=== PATIENT | female | born 1980 | race Caucasian/White ===

== ENCOUNTER → 2018-06-13 | Outpatient (REF) | payer BC ==
[2018-06-13 14:56] LABS: INFLUENZA A AMPLIFICATION NEGATIVE (NEGATIVE); INFLUENZA B AMPLIFICATION NEGATIVE (NEGATIVE)
== END ==
LOC: M LAB REF 13:35
PROVIDERS: ATTEND Physician Assistant
DX: J11.1 Influenza due to unidentified influenza virus with other respiratory manifestations (principal)

== ENCOUNTER 2018-12-09 09:36 | Inpatient (IN) | payer BC ==
[2018-12-09] VITALS (12 sets, daily range): BP systolic 141–203; BP diastolic 75–102
[~2018-12-09] VITALS: Ht 157.5 cm; Wt 113.5 kg
[2018-12-09] MEDS ORDERED: FERR325T18 PO (09:48)
[2018-12-09] MEDS ORDERED: LABE20TAB PO (09:48)
[2018-12-09] MEDS ORDERED: OXYC-517 PO (09:48)
[2018-12-09] MEDS ORDERED: IBUP-1022 PO (09:48)
[2018-12-09] MEDS: hydrALAZINE INJ 20 MG/ML VIAL IV PRN ×3 (10:08→10:53)
[2018-12-09 10:09] LABS: BASO % 0.6 % (0.0-1.0); EOS # 0.1 10^3/uL (0.0-0.5); HEMATOCRIT 32.1 % (36.0-47.0); HEMOGLOBIN 10.9 g/dl (12.0-15.5); LYMPH # 1.8 10^3/uL (1.5-5.0); LYMPH % 25.1 % (24.0-44.0); MEAN CORPUSCULAR HEMOGLOBIN 31.1 pg (27.0-33.0); MEAN CORPUSCULAR VOLUME 91.5 fl (80.0-96.0); MONO # 0.4 10^3/uL (0.0-0.8); MONO % 5.8 % (0.0-5.0); NEUTROPHILS # 4.7 10^3/uL (1.5-8.5); NEUTROPHILS % 65.9 % (36.0-66.0); PLATELET COUNT, AUTOMATED 326 10^3/uL (150-450); RED BLOOD COUNT 3.51 10^6/uL (4.00-5.40); WHITE BLOOD COUNT 7.1 10^3/uL (4.0-10.0)
--- NOTE | 2018-12-09 10:22 | REP ---
Clinical: Chest pain . Comparison: None . Findings: The mediastinum and cardiac silhouette are stable and within normal limits for portable technique. The lung lee are clear without acute consolidation, effusion, or pneumothorax. Skeletal structures are intact. Impression: No acute cardiopulmonary process appreciated. Electronically Signed by Arnoldo Vu MD 12/09/2018 10:13 A
[2018-12-09 10:25] LABS: ALBUMIN 2.6 GM/DL (3.2-5.2); ALT/SGPT 22 U/L (12-78); BILIRUBIN,DIRECT < 0.1 MG/DL (0.0-0.2); BILIRUBIN,TOTAL 0.2 MG/DL (0.2-1.0); MAGNESIUM LEVEL 1.8 MG/DL (1.8-2.4); TOTAL PROTEIN 5.9 GM/DL (6.4-8.2); URIC ACID 4.6 MG/DL (2.6-6.0)
--- NOTE | 2018-12-09 10:26 | REP ---
Clinical: Acute headache . Comparison: 12/10/2010 . Findings: The ventricles, sulci, and cisterns are normal in position and appearance. Swift-white differentiation is maintained. No acute intracranial hemorrhage, mass/mass effect, pathology or trauma/injury. No evidence for acute infarction. No extra-axial fluid collection. Calvarium is intact. Paranasal sinuses and mastoid air cells are clear. Impression: Normal noncontrast head CT. No evidence for acute intracranial pathology or trauma/injury. Electronically Signed by Arnoldo Vu MD 12/09/2018 10:18 A
[2018-12-09] MEDS ORDERED: FUROSEMIDE 20 MG/2 ML VIAL (J1940) IV ONE ×2 (10:30→14:30)
[2018-12-09] MEDS ORDERED: ACETAMINOPHEN 500 MG TAB PO ONE (10:30)
[2018-12-09 10:36] LABS: INR 1.03; PROTHROMBIN TIME 13.2 SECONDS (11.8-14.0)
[2018-12-09 10:37] LABS: PARTIAL THROMBOPLASTIN TIME 31.5 SECONDS (25.0-38.4)
[2018-12-09 10:43] LABS: CK-MB VALUE MASS 1.1 NG/ML (<3.6); CPK CREATINE PHOSPHOKINASE 83 U/L (26-192); MB/CK RELATIVE INDEX 1.33 (< OR =4); NT-PRO BNP 484 PG/ML (<125); TROPONIN I < 0.02 NG/ML (< 0.10)
[2018-12-09] MEDS ORDERED: MONT10TA2 PO (11:25)
[2018-12-09] MEDS ORDERED: ECOT81TA5 PO (11:25)
[2018-12-09] MEDS ORDERED: OMEP40CA2 PO (11:25)
[2018-12-09] MEDS ORDERED: B-2100TA PO (11:25)
[2018-12-09] MEDS ORDERED: RA B2500 PO (11:25)
[2018-12-09] MEDS ORDERED: CETI10TA4 PO (11:25)
[2018-12-09] MEDS ORDERED: VITAD1000T PO (11:25)
[2018-12-09] MEDS ORDERED: MULTTAB20 PO (11:25)
[2018-12-09 13:40] LABS: BLOOD UREA NITROGEN 14 MG/DL (7-18); CALCIUM LEVEL 8.6 MG/DL (8.5-10.1); CARBON DIOXIDE LEVEL 20 MEQ/L (21-32); CHLORIDE LEVEL 115 MEQ/L (98-107); CREATININE FOR GFR 0.89 MG/DL (0.55-1.30); GLOMERULAR FILTRATION RATE > 60.0 (>60); GLUCOSE, FASTING 98 MG/DL (70-100); POTASSIUM SERUM 4.5 MEQ/L (3.5-5.1); SODIUM LEVEL 145 MEQ/L (136-145)
--- NOTE | 2018-12-09 13:45 | HPE ---
DATE OF ADMISSION: 12/09/2018 PRINCIPAL DIAGNOSIS: Hypertensive emergency. PRIMARY CARE PROVIDER: Dr. Carmen Wharton LOW [employer]AGE ELECTRICIAN: center at [facility]. HISTORY: Gisell Maier is a 38-year-old, 1 week via section with a past history of hypertension, blood pressure was well controlled during her . She underwent elective section last week. She presented to the emergency room with headache, chest pressure and shortness of breath. Her blood pressure was 230/101 upon arrival. She has received hydralazine and some intravenous Lasix in addition to the labetalol that she takes as an outpatient and her blood pressure is now down to . She is being admitted to the intensive care unit (ICU) for further evaluation. PAST MEDICAL HISTORY: 1. 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 2. History of hypertension. 3. Chronic tension headaches. 4. Body Mass Index (BMI) greater than 45. 5. Carpal tunnel syndrome during . 6. History of cholecystitis. 7. Pleurodynia in the past. Her blood pressure is being treated as an outpatient with labetalol 200 mg twice a day. She also was on Singulair 10 mg daily and Ventolin inhaler for asthma and Prilosec for gastroesophageal reflux disease (GERD). She takes Actigall 300 mg twice a day for history of cholelithiasis. CURRENT MEDICATIONS: - aspirin 81 mg daily - cetirizine 10 mg daily - ferrous sulfate 325 mg daily - ibuprofen 600 mg every 6 hours as needed for pain - labetalol 200 mg twice a day - Singulair 10 mg at night - omeprazole 40 mg daily - vitamin D 1000 units daily - Ventolin inhaler - over the counter supplements like Biotin and Riboflavin. REVIEW OF SYSTEMS: She has had a pounding headache that has gotten better as her pressure has come down. CT of the brain showed no bleed. She has no chest pain. She has been short of breath. She has lower extremity edema that has been worsened in the last day. No visual disturbance. ALLERGIES: ADHESIVE TAPE, AMITRIPTYLINE caused her to feel "zoned out." PREDNISONE caused her to be disoriented. LATEX caused rash. SULFA antibiotics caused rash. I reviewed records available from her delivery. Her blood pressure on discharge was 142/83 with a pulse of 71. FAMILY HISTORY: Noncontributory. SOCIAL HISTORY: Nonsmoker. 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 She is not . PHYSICAL EXAMINATION: Blood pressure is currently 152/72, pulse 60, respirations 18, 98% oxygen saturation on 2 liters. GENERAL APPEARANCE: Flushed appearance. HEENT: Pupils are equal and reactive to light. Tympanic membranes normal. Neck with no masses. LUNGS: Clear. HEART: Regular with no murmur. ABDOMEN: Soft, nontender. No masses. EXTREMITIES: 1 to 2+ peripheral edema. No clonus. NEUROLOGIC: Nonfocal. LABORATORIES: White count 7.1, hemoglobin 10.9, platelets 326. Sodium 142, potassium 4.2, BUN 13, creatinine 0.9. Liver function tests are normal. Troponin is flat. Urinalysis shows no protein. CT of the head shows no bleed. Chest x-ray is unremarkable. IMPRESSION: 1. Hypertensive emergency. The patient will be admitted to the intensive care unit (ICU). Continue labetalol at the current dose. Give her hydralazine intravenously as needed. She has already received a dose of furosemide in the emergency room. Consult Dr. To, who is carbon rod inserter for L[employer] VOLTAGE ELECTRICIAN, as well as Dr. Staton for hypertension assistance. The patient will be on the hospitalist service. 2. 1 week. The patient is breast feeding and nursing staff was asked to make accommodations for this. 3. History of asthma. Continue her Singulair and use albuterol on an as needed basis.
[2018-12-09] MEDS ORDERED: hydrALAZINE INJ 20 MG/ML VIAL IV SCH (14:00)
[2018-12-09] MEDS ORDERED: POTASSIUM CHLORIDE 10 MEQ SR TABLET PO ONE (14:30)
[2018-12-09] MEDS: hydroCHLOROthiazide 12.5 MG CAPSULE PO SCH (16:13)
[2018-12-09] MEDS: NIFEdipine 10 MG CAP PO SCH ×2 (16:14→23:08)
[2018-12-09] MEDS: IBUPROFEN 800 MG TAB PO PRN ×2 (16:15→22:21)
--- NOTE | 2018-12-09 17:32 | CR ---
DATE OF CONSULTATION: 12/09/2018 REFERRING PHYSICIAN: Segundo Monsivais MD REASON FOR CONSULTATION: Hypertensive emergency, systemic hypertension. HISTORY OF PRESENT ILLNESS: Mrs. 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 She had a delivery of her first and only child 12/02/2018 by section. No history of preeclampsia. Currently, she is . She is 100% compliant with her blood pressure medications and does not have any history of adverse drug reaction to any prior antihypertensive agents. Since during the night last night, she has been having severe headache which is ongoing as well as she had some tightness and shortness of breath during the night. She has noticed bilateral progressive edema in both legs following section 12/02/2018. Prior to admission, she was on labetalol. She came to the emergency room this morning and was found to be severely hypertensive and had peripheral edema. Dr. Latisha Swift spoke to me for curbside advice and I suggested a dose of IV furosemide as the initial step to help bring down the blood pressure. Patient reports minimal use of added salt. She estimates about 40% of her food consumption is from processed food. She does check food labels and tries to keep the sodium content of individual foods to be choices that are 20% or less of the recommended dietary allowance for sodium. She infrequently consumes take out or restaurant food. She does not consume alcohol currently or during her . Prior to becoming , she was consuming a glass of wine on average every second day. She does not consume black licorice. She is on her feet walking about at least 30 minutes a day. She does not do any aerobic exercise or resistance exercise. She has an automatic digital arm blood pressure monitor. Her reports she has some mild snoring. No excessive daytime somnolence. She reports some facial flushing and she states this is how I know my blood pressure is high. No orthostatic lightheadedness. PAST MEDICAL AND SURGICAL HISTORY: section 12/02/2018. Behcet's disease. Systemic hypertension. Asthma. Degenerative disc disease. Morbid obesity. Chronic tension headaches. Carpal tunnel syndrome. History of cholecystitis. Previous pleurodynia. ADVERSE DRUG REACTIONS: SULFA ANTIBIOTICS, PREDNISONE, adhesive tape. MEDICATIONS: Prior to admission: - aspirin 81 mg daily - Biotin 2.5 grams daily - cetirizine 10 mg daily - ferrous sulfate 325 mg every evening - ibuprofen 600 mg by mouth every 6 hours as needed - labetalol 200 mg twice a day - montelukast 10 mg by mouth nightly - omeprazole 40 mg daily - oxycodone 5 mg every 6 hours as needed - multivitamin one daily - riboflavin 100 mg twice a day - vitamin D 1000 units daily Patient's current medications in hospital are as follows: - hydralazine 10 mg IV every 4 hours - furosemide 20 mg IV times one given in the emergency room (ER) - hydralazine 5 mg IV times one given in the ER - aspirin 81 mg daily - omeprazole 40 mg daily - vitamin D 1000 units daily - labetalol 200 mg twice a day - Singulair 10 mg nightly - Lovenox 40 mg subcutaneous nightly - ferrous sulfate 325 mg nightly FAMILY HISTORY: Mother, father, and one sister have systemic hypertension. Her mother had breast cancer. SOCIAL HISTORY: , resident of [place], [place]. Recent child. 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 No current alcohol. Nonsmoker. No illicit drugs. REVIEW OF SYSTEMS: 12 point review of systems negative other than those listed in the history of present illness (HPI) and past history as above. PHYSICAL EXAMINATION: Pleasant, morbidly obese, woman who appears her chronological age who is not in any respiratory or psychologic distress. Blood pressure 193/93, pulse 53 (regular), oxygen saturation 99% on oxygen 2 liters by nasal cannula, temperature 98.6, height 62 inches, weight 113.5 kg, body mass index (BMI) 45.8. No conjunctival pallor, sclerae icterus, or xanthomas. Oral mucosa was moist and without pallor or cyanosis. Jugular venous pulsations were at 5 cm. Trachea midline. No palpable thyroid. No clubbing of the nail beds, cyanosis, or splinter hemorrhages. No skin lesions, skin pallor, or icterus. Oriented to person, place, and time. Mood and affect normal. Curvature of spine normal. Gait not tested as patient is presently on bed rest in the intensive care unit (ICU). Gross motor strength and tone were normal. Respiratory expansion and effort was normal. No crackles or wheezes. No parasternal lifts, heaves, thrills, or palpable heart sounds. No palpable apex beat. First and second heart sounds were normal. No S3 or S4 or murmurs. Carotids are normal in volume and contour and without bruits. No palpable abdominal aorta. Femoral pulse difficult due to morbid obesity. Pedal pulse normal. 1 cm of pitting edema is present at mid and distal tibial level bilaterally. No varicose veins. Abdomen is obese, soft, nontender with normal bowel sounds. No hepatosplenomegaly or other organomegaly. Liver span difficult to assess due to abdominal obesity. Stool for occult blood not presently indicated. LABORATORY WORK: Laboratory work 12/09/2018 shows WBC 7.1, hemoglobin 10.9, hematocrit 32.1, platelets 326. PT/INR 1.03. Sodium 145, potassium 4.9, chloride 115, CO2 20, BUN 14, creatinine 0.89, estimated GFR greater than 60, glucose 98, uric acid 4.3, calcium 8.6, magnesium 1.8, bilirubin 0.2, direct bilirubin less than 0.1, AST 12, ALT 22, alkaline phosphatase 78, troponin I less than 0.02, NT-proBNP 484, total protein 5.6, albumin 2.6. CT head without contrast 12/09/2018 reported to be normal. I have independently visualized the patient's upright portable chest x-ray acquired 12/09/2018 at 10:03 a.m. It appears to be a normal portable chest x-ray. ASSESSMENT AND PLAN: 1. Hypertensive emergency. Patient has preexisting systemic hypertension and the patient's severe headache combined with severely uncontrolled systemic hypertension define this as a hypertensive emergency. She initially responded well to a dose of IV furosemide and a dose of IV hydralazine. At this point, I will give her some additional IV furosemide. I will also start her on hydrochlorothiazide 12.5 mg twice a day. Continue the current dose of labetalol 200 mg twice a day. I will take her off of the IV hydralazine every 4 hours order. I will order a dose of nifedipine. I will place her on a 2.5 gram DASH diet. Will follow with you. 2. Systemic hypertension. As per hypertensive emergency above. I plan to order an echocardiogram Doppler, renal ultrasound with renal artery Doppler because she had hypertension at a young age, as well as an ECG. Because she reports some flushing I will order plasma metanephrines. I will order plasma aldosterone and plasma renin activity. 3. Morbid obesity. I will place the patient on a DASH diet. 4. Flushing. Patient reports facial flushing and that is how she knows her blood pressure is high. I will order plasma metanephrines. 5. Dyspnea. Patient reports some dyspnea and chest tightness in the night and her NT-proBNP is just very mildly elevated. I will order an echocardiogram Doppler. She reports her breathing is better. She has responded nicely to IV furosemide.
[2018-12-09] MEDS ORDERED: FERROUS SULFATE 325MG TAB PO SCH (18:00)
[2018-12-09] MEDS: LABETALOL 200 MG TAB PO SCH (20:06)
[2018-12-09] MEDS: ACETAMINOPHEN 500 MG TAB PO PRN (20:07)
[2018-12-09] MEDS: MAGNESIUM CHLORIDE 64 MG TABCR (SLO MAG) PO SCH (20:07)
[2018-12-09] MEDS ORDERED: ENOXAPARIN 40 MG/0.4 ML SYRINGE (J1650) SC SCH (21:00)
[2018-12-09] MEDS ORDERED: MONTELUKAST 10 MG TAB PO SCH (21:00)
--- NOTE | 2018-12-09 21:51 | ECGEPIP ---
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
[2018-12-09 23:02] LABS: BLOOD UREA NITROGEN 15 MG/DL (7-18); CALCIUM LEVEL 8.6 MG/DL (8.5-10.1); CARBON DIOXIDE LEVEL 24 MEQ/L (21-32); CHLORIDE LEVEL 110 MEQ/L (98-107); CREATININE FOR GFR 0.89 MG/DL (0.55-1.30); GLOMERULAR FILTRATION RATE > 60.0 (>60); GLUCOSE, FASTING 110 MG/DL (70-100); SODIUM LEVEL 140 MEQ/L (136-145)
[2018-12-10] VITALS (10 sets, daily range): BP systolic 143–178; BP diastolic 83–96
--- NOTE | 2018-12-10 00:35 | ECGEPIP ---
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
[2018-12-10] MEDS: ACETAMINOPHEN 500 MG TAB PO PRN (04:34)
[2018-12-10 05:09] LABS: HEMOGLOBIN 11.8 g/dl (12.0-15.5); MEAN CORPUSCULAR HEMOGLOBIN 30.1 pg (27.0-33.0); MEAN CORPUSCULAR HGB CONC 33.7 g/dl (32.0-36.5); MEAN CORPUSCULAR VOLUME 89.3 fl (80.0-96.0); PLATELET COUNT, AUTOMATED 401 10^3/uL (150-450); RED BLOOD COUNT 3.92 10^6/uL (4.00-5.40); WHITE BLOOD COUNT 8.1 10^3/uL (4.0-10.0)
[2018-12-10 05:33] LABS: BLOOD UREA NITROGEN 13 MG/DL (7-18); CALCIUM LEVEL 8.3 MG/DL (8.5-10.1); CARBON DIOXIDE LEVEL 23 MEQ/L (21-32); CHLORIDE LEVEL 109 MEQ/L (98-107); CREATININE FOR GFR 0.81 MG/DL (0.55-1.30); GLOMERULAR FILTRATION RATE > 60.0 (>60); GLUCOSE, FASTING 93 MG/DL (70-100); POTASSIUM SERUM 3.8 MEQ/L (3.5-5.1); SODIUM LEVEL 138 MEQ/L (136-145)
--- NOTE | 2018-12-10 08:53 | REP ---
Clinical: Hypertension and chronic medical renal disease. Technique: Swift scale and color Doppler evaluation of the kidneys and renal vasculature using curved array transducer. Findings: The kidneys are essentially normal in contour, size and echogenicity without nephrolithiasis, cystic or renal mass lesion. Right kidney measures 11.8 x 5.2 x 3.8 cm and without hydronephrosis. Left kidney measures 12.7 x 4.2 x 5.4 cm and demonstrates mild hydronephrosis. Banuelos catheter identified in collapsed bladder. Color Doppler evaluation of the renal vasculature demonstrates normal arterial wave patterns, velocities, renal aortic ratios, resistive indices and the acceleration time. No sonographic evidence for renal arterial stenosis noted. Renal vein is patent. Right Kidney: Peak arterial velocity: 66 cm/sec . Renal aortic ratio: 0.6 . Resistive indices: 0.60 - 0.67 . Acceleration times: 0.02 - 0.03 . Left kidney: Peak arterial velocity: 84 cm/sec . Renal aortic ratio: 0.8 . Resistive indices: 0.66 - 0.71 . Acceleration times: 0.02 - 0.03 . Impression: 1. Mild left-sided hydronephrosis is suspected. 2. No sonographic evidence to suggest renal arterial stenosis. Electronically Signed by Arnoldo Vu MD 12/10/2018 08:44 A
[2018-12-10] MEDS: hydroCHLOROthiazide 12.5 MG CAPSULE PO SCH (08:55)
[2018-12-10] MEDS: LABETALOL 200 MG TAB PO SCH (08:56)
[2018-12-10] MEDS: NIFEdipine 10 MG CAP PO SCH (08:57)
[2018-12-10] MEDS: MAGNESIUM CHLORIDE 64 MG TABCR (SLO MAG) PO SCH (08:57)
[2018-12-10] MEDS ORDERED: ASPIRIN 81 MG ENTERIC TAB PO SCH (09:00)
[2018-12-10] MEDS ORDERED: NYSTATIN 100,000 UNITS/GM TOPICAL PWD 15 GM TOP SCH (09:00)
[2018-12-10] MEDS ORDERED: OMEPRAZOLE 20 MG CAP PO SCH (09:00)
[2018-12-10] MEDS ORDERED: VITAMIN D 1,000 INTERNATIONAL UNITS TABLET PO SCH (09:00)
[2018-12-10] MEDS: IBUPROFEN 800 MG TAB PO PRN (10:35)
[2018-12-10] MEDS ORDERED: FUROSEMIDE 20 MG/2 ML VIAL (J1940) IV ONE (11:00)
[2018-12-10] MEDS ORDERED: POTASSIUM CHLORIDE 10 MEQ SR TABLET PO ONE (11:00)
[2018-12-10] MEDS ORDERED: NIFEdipine 10 MG CAP PO SCH (14:00)
[2018-12-10] MEDS ORDERED: NIFE10CA2 PO ×2 (15:29→15:32)
[2018-12-10] MEDS ORDERED: HYDR12CA PO ×2 (15:29→15:32)
--- NOTE | 2018-12-10 16:28 | IPN ---
DATE: 12/10/2018 TIME: 3:39 p.m. CARDIOLOGY PROGRESS NOTE SUBJECTIVE: The patient reports her headache has resolved. She reports feeling well. She reports the edema in her legs has nearly completely disappeared. No shortness of breath. No chest pain or chest discomfort. Overall she is feeling well and would like to go home. On physical examination, not in any respiratory or psychologic distress. Temperature 98.4, blood pressure 156/95, pulse 96, respiratory rate 20. Jugular venous pulsations were at 3 cm. Respiratory and expansion effort were good. No crackles or wheezes. The first and second heart sounds were normal. No S3 or S4 or murmurs. Abdomen was soft and nontender with normal bowel sounds. Trace pitting edema in both legs. Laboratory work 12/10/2018 was reviewed: Sodium 138, potassium 3.8, chloride 109, CO2 23, BUN 13, creatinine 0.86, estimated GFR greater than 60, glucose 93. Plasma renin activity, plasma metanephrine and plasma aldosterone pending. Echocardiogram Doppler has just been completed, and I will plan to review this later. Renal ultrasound with renal artery Doppler 12/10/2018 reported mild left-sided hydronephrosis is suspected. No sonographic evidence to suggest renal artery stenosis. Kidneys normal in contour, size, and echogenicity without nephrolithiasis, cystic or renal mass lesions. ASSESSMENT AND PLAN: 1. Hypertensive emergency. Hypertensive emergency has resolved. Patient's blood pressure is currently mildly elevated. The plan will be to continue with the current antihypertensive regimen, which consists of nifedipine 20 mg every 8 hours, labetalol 200 mg twice a day, and hydrochlorothiazide 12.5 mg twice a day. I think it is not unreasonable for the patient to be permitted to go home today if hospitalist service is agreeable. My plan is for the patient to have a followup clinic visit with me in 1-2 weeks following discharge to recheck on her blood pressure. I instructed the patient to call my office during normal working hours if her blood pressure is consistently above 180/105 on either number consistently, and if it is after working hours to go to the emergency room. I also instructed her that if her systolic number is consistently below 100 to either contact my office during normal working hours or proceed to the emergency room. As a future consideration, when I see the patient at a subsequent visit, I will consider switching her from nifedipine and labetalol over to diltiazem because she has a history of migraine headaches. 2. Systemic hypertension. As per hypertensive emergency category above. 3. Morbid obesity. The patient was encouraged to follow a more whole food, plant-based diet. I encouraged her to read the book "How Not to " by Dr. Jayesh Braden MD. 4. Flushing. Awaiting results of the fractionated metanephrines. 5. Dyspnea. Resolved. Earlier in this admission, the patient had a very mildly elevated NT-Pro-BNP. I plan to review the patient's echocardiogram Doppler. At present, she appears to be compensated on examination.
--- NOTE | 2018-12-10 17:11 | ECHO ---
DATE OF PROCEDURE: 12/10/2018 REFERRING PHYSICIAN: Dr. Eric Staton INDICATION: Dyspnea. Height: 158 cm Weight: 114 kg 2D MEASUREMENTS: Left atrium: 3.9 cm Ventricular septum: 1.07 cm Posterior wall: 1.09 cm Left ventricle diastole: 4.4 cm Aortic root: 2.7 cm Aortic annulus: 2.0 cm Inferior vena cava: 1.6 cm with more than 50% respiratory variation. DOPPLER MEASUREMENTS: Aortic valve velocity: 162 cm/s LVOT velocity: 118 cm/s LVOT VTI: 24.2 cm Mitral E velocity: 110 cm/s Mitral A velocity: 76.2 cm/s Mitral deceleration time: 190 milliseconds Trace tricuspid regurgitation. Trace pulmonic regurgitation. Pulmonary artery systolic pressure: 12 mmHg MITRAL ANNULAR TISSUE DOPPLER: E prime septal: 9.03 cm/s Mitral E velocity: Lateral 10.3 cm/s DESCRIPTION: Rhythm was sinus. Image quality was fair. This was a 2D, M-mode, color flow Doppler and pulse wave Doppler examination and included mitral annular tissue Doppler. CONCLUSIONS: 1. Normal left ventricle internal dimensions and wall thickness. Normal regional left ventricular (LV) wall motion and wall thickening. Normal LV systolic function. Left ventricular ejection fraction (LVEF) 65% by visual estimate. Normal LV diastolic function. 2. Normal size of the aortic root at the level of the sinus of Valsalva. No coarctation of the aorta. 3. Structurally and functionally normal 3-cusp aortic valve. 4. Tiny pericardial effusion measuring 0.3 cm over the basal inferolateral segment of the left ventricle. 5. Suggestive of normal central venous pressure in the range of 5-10 mmHg. 6. False tendon (normal variant) at the left ventricle apex.
--- NOTE | 2018-12-11 06:46 | DS.PDOC ---
Discharge Summary General Date of Admission Dec 09, 2018 at 11:37 Date of Discharge 12/10/18 Specialist/Consultants Involve: Eric Staton Discharge Summary PROCEDURES PERFORMED DURING STAY: [None]. DISCHARGE DIAGNOSES: 1. hypertensive emergency 2. trace pericardial effusion SECONDARY DIAGNOSES: 1. 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 2. HTN 3. Chronic tension headaches. 4. Obesity 5. Carpal tunnel syndrome during . 6. History of cholecystitis. 7. Pleurodynia in the past. COMPLICATIONS/CHIEF COMPLAINT: Hypertensive Emergency. HISTORY OF PRESENT ILLNESS: 38-year-old female, 1 week via section with a past history of hypertension, blood pressure was well controlled during her . She underwent elective section one week ago. She presented to the emergency room with headache, chest pressure and shortness of breath. Her blood pressure was 230/101 upon arrival. She has received hydralazine and some intravenous Lasix in addition to the labetalol that she takes as an outpatient. She was admitted to ICU for further evaluation. Seen in consultation by cardiology and obstetrics. Blood pressure was managed with oral medications. She underwent echocardiogram, and renal imaging studies for other causes of hypertension, all studies were unremarkable. She did note flushing during her hypertensive episodes, and laboratory studies for pheochromocytoma is still pending. DISCHARGE MEDICATIONS: Please see below. ALLERGIES: Please see below. PHYSICAL EXAMINATION ON DISCHARGE: Vital Signs: See below General: NAD, lying comfortably in bed HEENT: NC/AT, EOMI, PERRL Lungs: CTA B/L Heart: +S1S2, RRR Abd: soft, NT, +BS, obese Ext: no edema Neuro: no gross focal deficits Psych: AAOx3 LABORATORY DATA: Please see below. ACTIVITY: [As tolerated]. DIET: DASH diet DISPOSITION: Home, Self-Care. DISCHARGE INSTRUCTIONS: 1. Follow up with PCP 12/11/18 as scheduled 2. Follow up with cardiology in 7-10 days DISCHARGE CONDITION: [Stable]. TIME SPENT ON DISCHARGE: 40 minutes. Vital Signs/I&Os Vital Signs Date Time Temp Pulse Resp B/P (MAP) Pulse Ox O2 Delivery O2 Flow Rate FiO2 12/10/18 14:33 156/95 12/10/18 11:42 98.4 92 20 99 12/09/18 16:03 2.0 12/09/18 12:15 Nasal Cannula I&O- Last 24 Hours up to 6 AM 12/11/18 06:00 Intake Total 780 ml Output Total 1710 ml Balance -930 ml Laboratory Data Labs 24H Laboratory Tests 2 12/10/18 09:00: Methicillin-Resist S.aureus DNA PCR NOT DETECTED Discharge Medications Scheduled Biotin (Biotin) 2,500 Mcg Capsule, 2,500 MCG PO DAILY, (Reported) Cetirizine HCl (Cetirizine HCl) 10 Mg Tablet, 10 MG PO DAILY, (Reported) Ferrous Sulfate (Ferrous Sulfate) 325 Mg Tablet, 325 MG PO QPM, (Reported) Hydrochlorothiazide (Hydrochlorothiazide) 12.5 Mg Capsule, 12.5 MG PO BID@, Labetalol HCl (Labetalol HCl) 200 Mg Tablet, 200 MG PO BID, (Reported) Montelukast Sodium (Montelukast Sodium) 10 Mg Tablet, 10 MG PO QHS, (Reported) Nifedipine (Nifedipine) 10 Mg Capsule, 20 MG PO Q8H Omeprazole (Omeprazole) 40 Mg Capsule.dr, 40 MG PO DAILY, (Reported) No122/Iron/Folic Acid ( Multi Tablet) 1 Each Tablet, 1 TAB PO DAILY, (Reported) Riboflavin (Vitamin B2) (Vitamin B-2) 100 Mg Tablet, 100 MG PO BID, (Reported) Vitamin D (Vitamin D3) 1,000 Unit Tablet, 1,000 UNITS PO DAILY, (Reported) Scheduled PRN Oxycodone HCl (Oxycodone HCl) 5 Mg Tablet, 5 MG PO Q6H PRN for PAIN, (Reported) Allergies Coded Allergies: Sulfa (Sulfonamide Antibiotics) (Verified Allergy, Intermediate, rash, 12/09/18) TAPE (Verified Allergy, Intermediate, plastic tape - rash, 12/09/18) prednisone (Verified Adverse Reaction, Intermediate, intolerance, 12/09/18) MISTY FUNG MD Dec 11, 2018 06:46
== END 2018-12-10 16:34 | disposition home or self-care (01) | DRG 561 ==
LOC: M ED 09:36 → EEVIPCON 11:37 → M ED INP 11:37 → M ICU 12:25
PROVIDERS: ADMIT Family Medicine; ATTEND Internal Medicine
DX: O16.5 Unspecified maternal hypertension, complicating the puerperium (principal); Z68.42 Body mass index [BMI] 45.0-49.9, adult; M35.2 Behcet's disease; E66.01 Morbid (severe) obesity due to excess calories; I16.1 Hypertensive emergency; O99.355 Diseases of the nervous system complicating the puerperium; G44.229 Chronic tension-type headache, not intractable; Z79.899 Other long term (current) drug therapy; Z88.2 Allergy status to sulfonamides; Z88.8 Allergy status to other drugs, medicaments and biological substances; O99.215 Obesity complicating the puerperium

== ENCOUNTER 2019-11-15 05:37 | Inpatient (IN) | payer BC ==
[~2019-11-15 05:37] MED LIST: B-2100TA PO; CETI10TA4 PO; CHOL100029 PO; ECOT81TA5 PO; FERR325T18 PO; HYDR12CA PO; IBUP-1022 PO; LABE20TAB PO; MONT10TA4 PO; MULTTAB20 PO; NIFE10CA2 PO; OMEP40CA97 PO; OXYC-517 PO; RA B2500 PO
[2019-11-15] MEDS ORDERED: MORPHINE 4 MG/ML 1ML VIAL/SYRINGE (J2270) ONE (06:42)
[2019-11-15] MEDS ORDERED: KETOROLAC 30 MG/ML 1ML VIAL As Ordered ONE ×2 (08:03→16:32)
[2019-11-15] MEDS ORDERED: KETOROLAC 30 MG/ML 1ML VIAL ONE ×2 (08:03→16:32)
[2019-11-15] MEDS ORDERED: ISOVUE-370 76% 100ML VIAL As Ordered ONE (08:16)
[2019-11-15] MEDS ORDERED: ZOSYN 3.375GM VIAL (J2543) As Ordered ONE ×3 (09:40→20:20)
[2019-11-15] MEDS ORDERED: ZOSYN 3.375GM VIAL (J2543) ONE ×3 (09:40→20:20)
[2019-11-15] MEDS ORDERED: ONDANSETRON 4MG/2ML VIAL ONE (10:01)
[2019-11-15] MEDS ORDERED: ROCURONIUM BROMIDE 50 MG/5 ML VIAL ONE (10:01)
[2019-11-15] MEDS ORDERED: BUPIVACAINE HCL 0.25% 30ML VIAL ONE (10:01)
[2019-11-15] MEDS ORDERED: LIDOCAINE 1% SDV 30ML VIAL ONE (10:01)
[2019-11-15] MEDS ORDERED: fentaNYL 100 MCG/2 ML INJECTION (J3010) ONE ×2 (10:01→12:14)
[2019-11-15] MEDS ORDERED: LIDOCAINE 2% 100MG/5ML SDV (FOR ANES.) ONE (10:01)
[2019-11-15] MEDS ORDERED: propofoL 200 MG/20 ML VIAL ONE ×5 (10:01→12:37)
[2019-11-15] MEDS ORDERED: MIDAZOLAM INJ 2MG/2ML VIAL (J2250 PER 1MG) ONE (10:01)
[2019-11-15] MEDS ORDERED: METOCLOPRAMIDE INJ 10MG/2ML VIAL (J2765 PER 1) ONE (11:35)
[2019-11-15] MEDS ORDERED: REMIFENTANIL 1MG 3ML VIAL ONE (11:40)
[2019-11-15] MEDS ORDERED: KETOROLAC 60MG 2ML VIAL ONE (12:14)
[2019-11-15] MEDS ORDERED: SUGAMMADEX SODIUM 500 MG/5 ML VIAL (BRIDION) ONE (12:14)
[2019-11-15] MEDS ORDERED: ACETAMINOPHEN 1000MG 100ML IV BTL (OFIRMEV) (J0131 PER 10MG) ONE (12:14)
[2019-11-15] MEDS ORDERED: PERCOCET 5MG/325MG TAB ONE ×2 (13:49→20:48)
[2019-11-15] MEDS ORDERED: CETIRIZINE (ZyrTEC) 10 MG TAB ONE (15:51)
[2019-11-15] MEDS ORDERED: PANTOPRAZOLE 40MG TAB (PROTONIX) ONE (15:51)
[2019-11-15] MEDS ORDERED: hydroCHLOROthiazide 12.5 MG CAPSULE ONE (15:51)
[2019-11-15] MEDS ORDERED: PANTOPRAZOLE 40MG TAB (PROTONIX) As Ordered ONE (15:52)
[2019-11-15] MEDS ORDERED: CETIRIZINE (ZyrTEC) 10 MG TAB As Ordered ONE (15:52)
[2019-11-15] MEDS ORDERED: hydroCHLOROthiazide 12.5 MG CAPSULE As Ordered ONE (15:52)
[2019-11-15] MEDS ORDERED: lisinopriL 20 MG TAB ONE (20:20)
[2019-11-15] MEDS ORDERED: CYCLOBENZAPRINE 10MG TABLET ONE (20:20)
[2019-11-15] MEDS ORDERED: CYCLOBENZAPRINE 10MG TABLET As Ordered ONE (20:20)
[2019-11-15] MEDS ORDERED: lisinopriL 20 MG TAB As Ordered ONE (20:20)
[2019-11-15] MEDS ORDERED: PERCOCET 5MG/325MG TAB As Ordered ONE (20:48)
[2019-11-16] MEDS ORDERED: ZOSYN 3.375GM VIAL (J2543) As Ordered ONE ×2 (04:37→09:31)
[2019-11-16] MEDS ORDERED: ZOSYN 3.375GM VIAL (J2543) ONE ×2 (04:37→09:31)
[2019-11-16] MEDS ORDERED: PERCOCET 5MG/325MG TAB ONE (04:48)
[2019-11-16] MEDS ORDERED: PERCOCET 5MG/325MG TAB As Ordered ONE (04:48)
[2019-11-16] MEDS ORDERED: PANTOPRAZOLE 40MG TAB (PROTONIX) As Ordered ONE (08:31)
[2019-11-16] MEDS ORDERED: ENOXAPARIN 40MG/0.4ML SYRINGE (J1650 PER 10MG) ONE (08:31)
[2019-11-16] MEDS ORDERED: PANTOPRAZOLE 40MG TAB (PROTONIX) ONE (08:31)
[2019-11-16] MEDS ORDERED: CETIRIZINE (ZyrTEC) 10 MG TAB As Ordered ONE (08:31)
[2019-11-16] MEDS ORDERED: hydroCHLOROthiazide 12.5 MG CAPSULE ONE (08:31)
[2019-11-16] MEDS ORDERED: CETIRIZINE (ZyrTEC) 10 MG TAB ONE (08:31)
[2019-11-16] MEDS ORDERED: hydroCHLOROthiazide 12.5 MG CAPSULE As Ordered ONE (08:31)
[2019-11-16] MEDS ORDERED: ENOXAPARIN 40MG/0.4ML SYRINGE (J1650 PER 10MG) As Ordered ONE (08:32)
[2020-01-01 17:17] LABS: BASO % 0.2 % (0.0-1.0); EOS % 0.3 % (0.0-3.0); HEMATOCRIT 41.7 % (36.0-47.0); HEMOGLOBIN 13.8 g/dl (12.0-15.5); LYMPH # 1.3 10^3/uL (1.5-5.0); LYMPH % 10.9 % (24.0-44.0); MEAN CORPUSCULAR HEMOGLOBIN 28.1 pg (27.0-33.0); MEAN CORPUSCULAR HGB CONC 33.1 g/dl (32.0-36.5); MEAN CORPUSCULAR VOLUME 84.9 fl (80.0-96.0); MONO # 0.6 10^3/uL (0.0-0.8); NEUTROPHILS # 10.2 10^3/uL (1.5-8.5); NEUTROPHILS % 83.4 % (36.0-66.0); PLATELET COUNT, AUTOMATED 351 10^3/uL (150-450); RED BLOOD COUNT 4.91 10^6/uL (4.00-5.40); WHITE BLOOD COUNT 12.2 10^3/uL (4.0-10.0)
[2020-01-01 17:59] LABS: APPEARANCE, URINE HAZY (CLEAR); BACTERIA, URINE AUTO NEGATIVE (NEGATIVE); BILIRUBIN, URINE AUTO NEGATIVE (NEGATIVE); BLOOD, URINE BLOOD NEGATIVE (NEGATIVE); COLOR, URINE YELLOW (YELLOW); GLUCOSE, URINE (UA) AUTO NEGATIVE (NEGATIVE); KETONE, URINE AUTO NEGATIVE (NEGATIVE); LEUKOCYTE ESTERASE, URINE AUTO NEGATIVE (NEGATIVE); MUCUS, URINE SMALL (NEGATIVE); NITRITE, URINE AUTO NEGATIVE (NEGATIVE); PROTEIN, URINE AUTO NEGATIVE (NEGATIVE); RBC, URINE AUTO 0 /HPF (0-3); SPECIFIC GRAVITY URINE AUTO 1.005 (1.002-1.035); SQUAMOUS EPITHELIAL CELL UR AU 3 /HPF (0-6); UROBILINOGEN, URINE AUTO 0.2 mg/dL (0.0-2.0); WBC, URINE AUTO 0 /HPF (0-3)
[2020-01-02 18:42] LABS: BASO % 0.4 % (0.0-1.0); EOS # 0.2 10^3/uL (0.0-0.5); EOS % 2.8 % (0.0-3.0); HEMATOCRIT 33.8 % (36.0-47.0); HEMOGLOBIN 11.2 g/dl (12.0-15.5); LYMPH # 1.6 10^3/uL (1.5-5.0); MEAN CORPUSCULAR HEMOGLOBIN 28.1 pg (27.0-33.0); MEAN CORPUSCULAR HGB CONC 33.1 g/dl (32.0-36.5); MEAN CORPUSCULAR VOLUME 84.9 fl (80.0-96.0); MONO # 0.4 10^3/uL (0.0-0.8); MONO % 6.5 % (0.0-5.0); NEUTROPHILS # 3.3 10^3/uL (1.5-8.5); NEUTROPHILS % 60.9 % (36.0-66.0); PLATELET COUNT, AUTOMATED 263 10^3/uL (150-450); RED BLOOD COUNT 3.98 10^6/uL (4.00-5.40); WHITE BLOOD COUNT 5.4 10^3/uL (4.0-10.0)
--- NOTE | 2020-01-15 10:36 | RO ---
DATE OF OPERATION: 11/15/2019 PREOPERATIVE DIAGNOSIS: Acute appendicitis. POSTOPERATIVE DIAGNOSIS: Acute appendicitis. PROCEDURE: Laparoscopic appendectomy. SURGEON: Darinel Sullivan MD [employer] [place]: Heladio López MD, PGY-1 ESTIMATED BLOOD LOSS: 10 mL. SPECIMENS: Appendix. FINDINGS: Retrocecal appendix with mild wall thickening, no perforation. DESCRIPTION OF PROCEDURE: Ms. Maier presented to the emergency room with sudden onset of pain along her right flank area along with nausea at about 3 a.m. this morning. She was found to have evidence for acute appendicitis. She has mild leukocytosis of 12,000. She was brought to the operating room and placed supine on the table. Compression boots placed on the lower extremities for deep vein thrombosis (DVT). General endotracheal tube anesthesia was started. Precautions performed for a family history of malignant hyperthermia. Her abdomen was then prepped and draped in the usual sterile fashion. We performed a surgical time-out prior to the start of the first incision. Entered into the abdomen via Veress needle technique roughly about 6 cm above her umbilical skin fold. Intraabdominal insufflation was then started to a pressure of 15 mmHg. Using the same incision, a long bariatric 5-mm port was placed under direct vision with the laparoscopic. The insertion site was inspected for injury and none was found. She was placed in steep Trendelenburg position with her right side tilted upwards to expose the cecum. On diagnostic laparoscopy most of the bowel was covered by omentum. The liver appeared smooth in contour. No free fluid noted. The cecum, as well as the bowels, did not seem to be overly distended nor have any secondary signs of inflammation. The right ovary had a small cyst. The left ovary was not visualized. I was expecting a retrocecal appendix from my view of the CT scan; thus, I placed ports at the suprapubic area at the midline and roughly about 3 cm below the umbilicus just to the left of the midline with three ports. We began dissecting the appendix. The narrow attachments of the terminal ileum and cecum to the white line of Toldt were divided with Harmonic scalpel delivering the appendix into view. The fibrous attachments of the appendix to the cecum were divided to further deliver it into view. The mesoappendix was divided close to the wall of the appendix. As we continued dissecting and freeing the appendix from the lateral wall off the cecum. Once the appendix was fully exposed and divided to its attachments to the cecum, two EndoLoop PDS was placed to ligate the appendix. This was divided with the Harmonic scalpel and the stump was cauterized. The surgical site was inspected for bleeding and none was found. I upsized the supraumbilical port site to an 8-mm port, placed a 5-mm bag, and placed the appendix into the bag. The fascial opening was slightly enlarged. This was then closed with Jay Jay- Nery device using 0-Vicryl in a mattress fashion. Sweep of the abdomen was performed to look for any other pathology, signs of injury, or fluid collection and none was found. The abdomen was then deflated and all ports were removed. The rest of the skin incisions closed with 4-0 Vicryl in a subcuticular fashion. Steri-Strips, gauze dressings, and Tegaderm were then placed for wound coverage. The patient was then promptly awakened, extubated, and brought to the recovery room in stable condition. ANNELISE
[2020-02-03 18:46] LABS: HCG, SERUM QUALITATIVE NEGATIVE (NEGATIVE)
[2020-02-03 18:48] LABS: ALT/SGPT 19 U/L (12-78); BILIRUBIN,DIRECT < 0.1 MG/DL (0.0-0.2); BILIRUBIN,TOTAL 0.4 MG/DL (0.2-1.0); BLOOD UREA NITROGEN 13 MG/DL (7-18); CALCIUM LEVEL 9.2 MG/DL (8.5-10.1); CARBON DIOXIDE LEVEL 26 MEQ/L (21-32); CHLORIDE LEVEL 106 MEQ/L (98-107); CREATININE FOR GFR 0.88 MG/DL (0.55-1.30); GLOMERULAR FILTRATION RATE > 60.0 (>60); GLUCOSE, FASTING 102 MG/DL (70-100); LIPASE 85 U/L (73-393); SODIUM LEVEL 137 MEQ/L (136-145); TOTAL PROTEIN 7.7 GM/DL (6.4-8.2)
[2020-02-09 23:12] LABS: BLOOD UREA NITROGEN 14 MG/DL (7-18); CALCIUM LEVEL 8.1 MG/DL (8.5-10.1); CARBON DIOXIDE LEVEL 27 MEQ/L (21-32); CHLORIDE LEVEL 107 MEQ/L (98-107); CREATININE FOR GFR 1.08 MG/DL (0.55-1.30); GLOMERULAR FILTRATION RATE > 60.0 (>60); GLUCOSE, FASTING 95 MG/DL (70-100); POTASSIUM SERUM 3.9 MEQ/L (3.5-5.1); SODIUM LEVEL 138 MEQ/L (136-145)
== END 2019-11-16 11:00 | disposition home or self-care (01) | DRG 225 ==
LOC: M ED 05:37 → M MS5PR 14:56
PROVIDERS: ADMIT Surgery; ATTEND Surgery
PROC: 0DTJ4ZZ Resection of Appendix, Percutaneous Endoscopic Approach (ICD-10-PCS; principal; 2019-11-15)
DX: K35.80 Unspecified acute appendicitis (principal); Z88.2 Allergy status to sulfonamides; Z79.899 Other long term (current) drug therapy; Z88.8 Allergy status to other drugs, medicaments and biological substances